=== PATIENT | female | born 1970 | race Caucasian/White ===

== ENCOUNTER → 2020-06-05 | Day surgery (SDC) | payer OTHER ==
[~2020-06-05] MED LIST: ADVIL200 M1 PO; AZELASTINE205.5 MCG/; OXYBUTYNIN CHLO15 MG PO; PROZAC20 MG PO; ZYRTEC-D TABLE1 EACH PO
[2020-06-05 11:34] LABS: BILIRUBIN - TOTAL 0.7 mg/dL (0.2-1.0); BUN/CREAT RATIO (CALC) 13.7 RATIO; CREATININE 0.73 mg/dL (0.51-0.95); GLOBULIN (CALCULATION) 3.5 g/dL; POTASSIUM 4.4 mmol/L (3.5-5.1); TOTAL PROTEIN 7.5 g/dL (6.4-8.2)
[2020-06-05 12:02] LABS: HCT 46.7 % (37.0-47.0); HGB 16.4 g/dl (12.5-16.0); MCH 30.7 pg (25.0-31.0); MCHC 35.1 g/dL (32.0-36.0); MCV 87.3 fL (78.0-100.0); MPV 10.9 fL (6.0-9.5); RBC 5.35 M/uL (4.20-5.40); RDW 12.1 % (11.5-14.0)
== END | disposition home or self-care (01) ==
LOC: FAS 09:18
PROVIDERS: Surgery
DX: K21.9 Gastro-esophageal reflux disease without esophagitis (principal); K29.70 Gastritis, unspecified, without bleeding; K27.9 Peptic ulcer, site unspecified, unspecified as acute or chronic, without hemorrhage or perforation; G43.909 Migraine, unspecified, not intractable, without status migrainosus; F41.9 Anxiety disorder, unspecified; Z90.49 Acquired absence of other specified parts of digestive tract; Z86.19 Personal history of other infectious and parasitic diseases; Z20.822 Contact with and (suspected) exposure to COVID-19; Z87.19 Personal history of other diseases of the digestive system; Z83.3 Family history of diabetes mellitus; Z82.49 Family history of ischemic heart disease and other diseases of the circulatory system
CPT/HCPCS: 36415; 80053; 82941; J2250; J2704; J7120